=== PATIENT | male | born 1975 | race Caucasian/White ===

== ENCOUNTER → 2019-09-04 | Outpatient (CLI) | payer OTHER | LOC: RAD 12:19 | DX: R68.89 Other general symptoms and signs (principal); R06.02 Shortness of breath; R05 Cough ==

== ENCOUNTER → 2021-08-01 | Outpatient (CLI) | payer BC | LOC: SJCVCIMAG 10:16 | PROVIDERS: ATTEND Internal Medicine | DX: Z13.6 Encounter for screening for cardiovascular disorders (principal) ==